=== PATIENT | male | born 1955 | race Caucasian/White ===

== ENCOUNTER 2016-09-16 10:52 | Outpatient (CLI) | payer MEDICARE ==
[~2016-09-16] VITALS: Ht 180.3 cm; Wt 90.9 kg
--- NOTE | ~2016-09-16 | HEMODYNAMI ---
PATIENT:JOSE RAMON GÓMEZ MEDICAL RECORD: [id number] : 51 LOCATION:[facility] ADMISSION DATE: 09/16/16 Generatedon:09/16/201613:31 Patient name: JOSE RAMON GÓMEZ Patient #: [id number] SSN: D OB: 1955 Date of study: 09/16/2016 Page: Of Hemodynamic Procedure Report Patient Data Patient Demographics Procedure consent was obtained First Name: JOSE RAMON Gender: Male Last Name: RICO : 1955 Patient #: [id number] Age: 61 year(s) Race: Additional ID: [id number] Contact details Address: [address] [place] [address] State: [place] City: [place] Zip code: [address] Admission Admission Data Admission Date: 09/16/2016 Admission Time: 10:52 Procedure Procedure Types Cath Procedure Diagnostic Procedure LHC LHC w/Coronaries Miscellaneous Procedures Moderate Sedation up to 15 minutes Procedure Description Procedure Date Procedure Date: 09/16/2016 Procedure Start Time: 13:16 Procedure End Time: 13:30 Procedure Staff Name Function Ole Osullivan RT Scrub Mora Ng RN Nurse Galen Valente RT Monitor Cody Stephenson MD Performing Physician Procedure Data Cath Procedure Fluoroscopy Diagnostic fluoroscopy Total fluoroscopy Time: 1.2 time: 1.2 min min Diagnostic fluoroscopy Total fluoroscopy dose: dose: 125.42 mGy 125.42 mGy Contrast Material Contrast Material Type Amount (ml) Isovue 300 65 Entry Location Entry Primary Successful Side Size Upsize Upsize Entry Closure Succes sful Closure Location (Fr) 1 (Fr) 2 (Fr) Remarks Device Remarks Femoral Right 5 Fr Exoseal artery Estimated blood loss: 10 ml Diagnostic catheters Device Type Used For End Catheter Placement Cordis 5Fr JL 4.0 Coronary Catheter (MP) Angiography Cordis 5Fr 3DRC Catheter Coronary (MP) Angiography Cordis 5Fr Pigtail LV Angiography Catheter (MP) Procedure Complications No complications Procedure Medications Medication Administration Route Dosage Oxygen NC 2 l/min Heparin Flush Bag added to field 2 bags (1000units/500ml NS) Lidocaine 2% added to field 20 Versed I.V. 1 mg Fentanyl I.V. 50 mcg Versed I.V. 1 mg Fentanyl I.V. 50 mcg Hemodynamics Rest Heart Rate: 69 (bpm) Pressure Samples Time Site Value (mmHg) Purpose Heart Use Rate(bpm) 13:22 LV 120/-10,10 Snapshot 70 Gradients Valve Time Site Site Mean SEP/DFP Peak To Heart Use 1 2 (mmHg) (sec/min) Peak Rate (mmHg) (bpm) Aortic 13:23 LV AO 72 Snapshots Pre Cath Intra NCS Post Cath Vital Signs Time Heart Resp SPO2 NIBP (mmHg) Rhythm Pain Sedation Rate (ipm) (%) Status Level (bpm) 13:02:28 72 15 100 156/98(136) NSR 0 (11) 10(A) , No pain 13:06:54 76 15 100 151/100(132) NSR 0 (11) 10(A) , No pain 13:11:12 67 18 96 135/82(120) NSR 0 (11) 10(A) , No pain 13:15:30 69 16 98 125/98(117) NSR 0 (11) 10(A) , No pain 13:19:48 68 16 99 133/82(111) NSR 0 (11) 9(A) , No pain 13:24:08 83 16 98 128/105(122) NSR 0 (11) 9(A) , No pain 13:26:36 80 16 99 149/92(122) NSR 0 (11) 10(A) , No pain Medications Time Medication Route Dose Verified Delivered Reason Notes Effec tiveness by by 13:04:28 Oxygen NC 2 Cody Mora Per l/min St. Brary Ng RN physician 13:04:39 Heparin Flush added 2 Cody Mora used for Bag to bags [facility]. Barry Ng RN procedure (1000units/500ml field PADILLA NS) 13:04:48 Lidocaine 2% added 20ml Cody Cody used for to vial [facility] [place] procedure field MD PADILLA 13:15:03 Versed I.V. 1 mg Cody Mora for [facility]. Barry Ng RN sedation 13:15:09 Fentanyl I.V. 50 Cody Mora for mcg [facility]. Barry Ng RN sedation 13:17:27 Versed I.V. 1 mg Cody [place] RN sedation 13:17:31 Fentanyl I.V. 50 Cody izquierdo [facility] [facility] Barry Ng RN sedation Procedure Log Time Note 12:30:55 Galen Arevaloley RT(R) sent for patient. Start room use. 12:47:30 ACC Patient presents with Stable Angina CCS Anginal Class 2--Slight limitation of ordinary activity. 12:47:33 Diagnostic Cath status Elective 12:48:03 Time tracking: Regular hours 12:48:08 Plan of Care:Hemodynamics will remain stable., Cardiac rhythm will remain stable., Comfort level will be maintained., Respiratory function will remain adequate., Patient/ family verbilizes understanding of procedure., Procedure tolerated without complication., Recovers from procedure without complications.. 12:48:27 Patient received from Pre/Post Procedure Room to [facility] 3 Alert and oriented. Tansferred to table in Supine position. 12:48:28 Warm blankets applied, and kayla hugger turned on for patient comfort. 12:48:29 Correct patient and procedure confirmed by team. 12:48:31 Signed procedure consent form obtained from patient. 12:48:32 ECG and BP/O2 sat monitors applied to patient. 13:01:07 Vital chart was started 13:04:28 Oxygen 2 l/min NC was given by Mora Ng RN; Per physician; 13:04:39 Heparin Flush Bag (1000units/500ml NS) 2 bags added to field was given by Mora Ng RN; used for procedure; 13:04:48 Lidocaine 2% 20ml vial added to field was given by Cody Stephneson MD; used for procedure; 13:11:22 Baseline sample Acquired. 13:11:28 Rhythm: sinus rhythm 13:12:09 Full Disclosure recording started 13:12:47 H&P Date Dictated: 09/09/2016 Within 30 days and on chart., H&P Addendum completed by physician on day of procedure. (MUST COMPLETE FOR ALL OUTPATIENTS). 13:12:48 Pre-procedure instructions explained to patient. 13:12:48 Pre-op teaching completed and patient verbalized understanding. 13:12:49 Family in waiting room. 13:12:51 Patient NPO since Midnight. 13:13:30 Is the patient allergic to Iodine/contrast media? No. 13:13:32 Is patient on blood thinner?No 13:13:34 ACC The patient was administered the following blood thiners within the last 24 hours: None 13:13:39 Patient diabetic? No. 13:13:50 Previous problem with sedation/anesthesia? No ? 13:13:52 Snore? Yes 13:13:53 Sleep apnea? No 13:13:54 Deviated septum? No 13:13:54 Opens mouth fully? Yes 13:13:55 Sticks out tongue? Yes 13:13:57 Airway obstruction? No ? 13:14:00 Dentures? No ? 13:14:03 Pre procedure: right dorsailis pedis pulse 1+ Palpable, but thready & weak; easily obliterated 13:14:06 Patient pain scale 0/10 .. 13:14:09 Lab results completed and on chart. 13:14:12 Right groin area was prepped with chlora-prep and draped in sterile fashion 13:14:13 Alarms reviewed by R. N. 13:14:14 Sharps counted by scrub and verified by R.N. 13:14:15 --------ALL STOP TIME OUT------ 13:14:15 Final Timeout: patient, procedure, and site verified with staff and physician. All members of the team are in agreement. 13:14:17 Right groin site verified by team. 13:14:39 Physical assessment completed. ASA score P 2 - A patient with mild systemic disease as per Cody Stephenson MD. 13:14:42 Sedation plan: IV Moderate Sedation Versed, Fentanyl 13:15:03 Versed 1 mg I.V. was given by Mora Ng RN; for sedation; 13:15:09 Fentanyl 50 mcg I.V. was given by Mora Ng RN; for sedation; 13:15:36 Zero performed for pressure channel P1 13:16:25 Use device set Femoral Dx 13:16:26 Tegaderm 4 x 4 opened to sterile field. 13:16:27 Acist Hand Control opened to sterile field. 13:16:27 Acist Manifold opened to sterile field. 13:16:28 Acist Syringe opened to sterile field. 13:16:29 Bag Decanter opened to sterile field. 13:16:29 Medline Cath Pack opened to sterile field. 13:16:30 Terumo 5Fr [place] Sheath opened to sterile field. 13:16:30 St Shabbir 260cm J .035 wire opened to sterile field. 13:16:31 Diagnostic Infinity 5Fr Multipack catheter opened to sterile field. 13:16:36 Procedure started. 13:16:40 Local anesthetic to right femoral artery with Lidocaine 2% by Cody Stephenson MD.INITIAL ACCESS ONLY 13:17:26 A 5 Fr sheath was inserted into the Right Femoral artery 13:17:27 Versed 1 mg I.V. was given by Mora Ng RN; for sedation; 13:17:31 Fentanyl 50 mcg I.V. was given by Mora Ng RN; for sedation; 13:17:49 A Cordis 5Fr JL 4.0 Catheter (MP) was advanced over the wire and used for Coronary Angiography. 13:18:56 LCA angiography performed. 13:20:02 Catheter removed. 13:20:29 A Cordis 5Fr 3DRC Catheter (MP) was advanced over the wire and used for Coronary Angiography. 13:20:34 RCA angiography performed. 13:20:35 Catheter removed. 13:21:04 A Cordis 5Fr Pigtail Catheter (MP) was advanced over the wire and used for LV Angiography. 13:22:28 LV angiography performed. 13:22:30 LV gram done using TOLEDO 13:22:50 EF : 50 % 13:23:15 LV hemodynamics recorded. 13:23:19 Injector settings: Ml/sec: 10, Volume: 20, 13:23:29 Catheter removed. 13:23:44 Cordis 5Fr Exoseal opened to sterile field. 13:24:25 Sheath removed intact; hemostasis achieved with Exoseal to the Right Femoral artery. 13:24:27 Procedure ended.(Physican Out) 13:24:40 Fluoroscopy time 01.20 minutes. 13:24:44 Fluoroscopy dose: 125.42 mGy 13:24:44 Flurop Dose total: 125.42 13:24:57 Contrast amount:Isovue 300 65ml. 13:24:58 Sharps counted by scrub and verified by R.N. 13:25:00 Insertion/operative site no bleeding no hematoma. 13:25:15 Post-op/insertion site Right Femoral artery dressed using a 4 x 4 and Tegaderm. 13:25:20 Post Procedure Pulses reassessed and unchanged 13:25:30 Post-procedure physical assessment completed. ASA score P 2 - A patient with mild systemic disease as per Cody Stephenson MD. 13:25:33 Post procedure rhythm: unchanged. 13:25:37 Estimated blood loss: 10 ml 13:25:38 Post procedure instruction explained to patient.Patient verbalizes understanding. 13:25:39 Patient needs reinforcement of post procedure teaching. 13:25:48 Procedure type changed to Cath procedure, Diagnostic procedure, LHC, LHC w/Coronaries, Miscellaneous Procedures, Moderate Sedation up to 15 minutes 13:25:53 Procedure and supply charges have been captured, reviewed, submitted and are correct. 13:25:56 Procedure Complication : No complications 13:30:21 Vital chart was stopped 13:30:21 See physician's report for complete and final results. 13:30:23 Report given to Pre/Post Procedure Room. 13:30:25 Patient transfered to Pre/Post Procedure Room with Stretcher. 13:30:27 Procedure ended. 13:30:27 Full Disclosure recording stopped 13:30:31 End room use (Document Last) Device Usage Item Name Manufacture Quantity Catalog Hospital Part Current Minimal Lo t# / Number Charge Number Stock Stock Serial# Code Tegaderm 4 3M 1 [id number] 5 x 4 Acist Hand Acist 1 47427 876738 305163 221681 5 Control [employer] Acist Acist 1 46106 856934 928678 874650 5 Manifold [employer] Acist Acist 1 25950 560257 218840 697540 20 Syringe [employer] Inc Bag Microtek 1 2002S 856480 18642 822187 5 [employer] Medline Cardinal 1 [id number] 467099 56104 551643 5 Cath Pack Health Terumo 5Fr Terumo 1 [id number] 320664 573139 416239 [address] Shabbir 1 895516 295351 183421 929766 30 260cm J .035 wire Diagnostic Cardinal 1 [id number] 993985 99993 756203 30 [employer] 5Fr Multipack catheter Cordis 5Fr Cardinal 1 [id number] 5 JL 4.0 Health Catheter (MP) Cordis 5Fr Cardinal 1 477475 5 3DRC Health Catheter (MP) Cordis 5Fr Cardinal 1 264509 5 Pigtail Health Catheter (MP) Cordis 5Fr Cardinal 1 EX500 644899 941276 936374 10 [facility] Health Signature Audit [place] Stage Time Signature Unsigned Intra-Procedure 09/16/2016 Galen Valente 1:31:08 PM RT(R) Signatures Monitor : Galen Valente RT Signature : Date : Time : [address] [address]
[~2016-09-16 10:52] MED LIST: CARDURA1 MG PO; MOBIC7.5 MG PO; PRILOSEC10 MG
[2016-09-16] MEDS ORDERED: BAYER CHEWABLE81 MG PO (11:24)
[2016-09-16 11:26] VITALS: BP 145/83; Ht 180.3 cm; Wt 90.9 kg
[2016-09-16 11:50] LABS: BASOPHILS 0.3 % (0.0-2.0); EOSINOPHILS 2.7 % (0-7); HEMATOCRIT 43.4 % (42.0-54.0); HEMOGLOBIN 14.9 g/dL (13.5-17.5); IMMATURE GRANULOCYTES 0.3 % (0-5); LYMPHOCYTES 39.5 % (15-50); MCH 29.8 pg (26.0-34.0); MCHC 34.3 g/dL (31.0-37.0); MCV 86.8 fL (80.0-100.0); MEAN PLATELET VOLUME 9.8 fL (7.4-10.4); MONOCYTES 8.3 % (2-11); NEUTROPHILS 48.9 % (40-80); PLATELET COUNT 165 10x3/uL (130-400); RDW 12.8 % (11.5-14.5); WBC 5.9 10x3/uL (4.8-10.8)
[2016-09-16 12:09] LABS: CALC OSMOLALITY 281 mosm/kg (275-300); CALCIUM 9.2 mg/dL (8.5-10.1); CARBON DIOXIDE 28.5 mmol/L (21.0-32.0); CHLORIDE - SERUM 105 mmol/L (98-107); CREATININE - SERUM 0.8 mg/dL (0.6-1.3); GLUCOSE 90 mg/dL (74-106); POTASSIUM - SERUM 5.5 mmol/L (3.5-5.1); SODIUM 141 mmol/L (136-145); UREA NITROGEN 15 mg/dL (7-18); eGFR NON AFRICAN AMERICAN > 90 mL/min (90-120)
--- NOTE | 2016-09-16 13:54 | NUR ---
VSS WITH CHEST PAIN DENIED 5 FR VASCADE R/GROIN CDI NO BLEEDING NO HEMATOMA NOTED. INSTRUCTED PATIENT TO KEEP HEAD FLAT ON PILLOW WITH RLE STRAIGHT
--- NOTE | 2016-09-16 14:07 | NUR ---
DR. SANCHEZ AT BEDSIDE SPEAKING WITH PT AND . SANDWICH TRAY GIVEN. VSS. NO C/O PAIN OR NAUSEA AT THIS TIME. WILL CONTINUE TO MONITOR.
--- NOTE | 2016-09-16 14:26 | NUR ---
VSS WITH CHEST PAIN DENIED. 5 FR EXOSEAL R/GROIN CDI NO BLEEDING NO HEMATOMA NOTED INSTRUCTED PATIENT TO KEEP HEAD FLAT ON PILLOW WITH RLE STRAIGHT
--- NOTE | 2016-09-16 14:58 | NUR ---
RESTING QUIETLY WITH EYES CLOSED VSS NO DISTRESS NOTED. WILL CONTINUE TO MONITOR
--- NOTE | 2016-09-16 15:11 | NUR ---
REPOSITIONED TO SITTING WITH HOB UP 30 DEGREES 5 FR EXOSEAL R/GROIN CDI NO BLEEDING NO HEMATOMA NOTED.
--- NOTE | 2016-09-16 15:34 | NUR ---
PIV REMOVED FROM LEFT ARM WITH DRESSING APPLIED. CHEST PAIN DENIED 5 FR EXOSEAL R/GROIN CDI NO BLEEDING NO HEMATOMA NOTED VERBAL AND WRITTEN DISCHARGE GONE OVER WITHPATIENT AND . 1545 LEFT VIA WC TO [facility] FOR FAMILY TO TRANSPORT HOME
--- NOTE | 2016-09-18 12:18 | OP ---
PATIENT NAME: JOSE RAMON GÓMEZ MEDICAL RECORD: [id number] :51 LOCATION:D.CAT ADMISSION DATE: SURGEON: NEIDA AGUILAR MD DATE OF OPERATION: 09/16/2016 PROCEDURE: Left heart catheterization, selective coronary angiography, right femoral artery approach. CATHETERS: A 5-Yoruba sheath, 5/4 left and right Alla, 5/4 pig. The procedure was well-tolerated and the patient returned to medellin, sheath was removed. ExoSeal device was placed. FINDINGS: Left ventriculography in 30-degree TOLEDO view: Normal wall motion. Normal systolic function. CORONARY ANATOMY: LEFT MAIN: The left main is free of disease. LAD: Free of disease in the diagonal system. CIRCUMFLEX: Free of disease in the marginal system. RIGHT CORONARY ARTERY: Previous stenting is widely patent with no evidence of restenosis. 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 No restenosis. TRANSINT:[id number] Voice Confirmation ID: [id number] DOCUMENT ID: [id number] NEIDA AGUILAR MD at 1218 CC: [id number] DICTATION DATE: 09/16/16 1328 LARYNGOLOGIST: 09/16/16 2230 DEP CLI 09/16/16 [address] [id number] [place] [address]
== END 2016-09-16 15:46 | disposition home or self-care (01) ==
LOC: D.CATH 10:52
PROVIDERS: Internal Medicine Interventional Cardiology
DX: I25.10 Atherosclerotic heart disease of native coronary artery without angina pectoris (principal); Z95.5 Presence of coronary angioplasty implant and graft

== ENCOUNTER 2018-06-30 18:26 | Emergency (ER) | payer MEDICARE, BC ==
[~2018-06-30] VITALS: Ht 180.3 cm; Wt 93.2 kg
[~2018-06-30 18:26] MED LIST changes: +BAYER CHEWABLE81 MG PO
[2018-06-30 18:47] VITALS: Ht 180.3 cm; Wt 93.2 kg
[2018-06-30] MEDS ORDERED: PREVACID15 MG PO (18:48)
[2018-06-30] MEDS ORDERED: GABAPENTIN100 MG PO (18:49)
[2018-06-30 19:53] VITALS: BP 144/88
== END 2018-06-30 19:53 | disposition home or self-care (01) ==
LOC: D.ER 18:26
DX: S05.01XA Injury of conjunctiva and corneal abrasion without foreign body, right eye, initial encounter (principal); X58.XXXA Exposure to other specified factors, initial encounter; Y93.89 Activity, other specified; Y92.019 Unspecified place in single-family (private) house as the place of occurrence of the external cause; I10 Essential (primary) hypertension

== ENCOUNTER 2018-08-20 14:09 | Observation (INO) | payer MEDICARE, BC ==
[2018-08-20] VITALS (8 sets, daily range): BP systolic 98–141; BP diastolic 57–78; Ht 180.3 cm; Wt 90.9 kg
[~2018-08-20] VITALS: Ht 180.3 cm; Wt 90.9 kg
--- NOTE | ~2018-08-20 | HEMODYNAMI ---
PATIENT:JOSE RAMON GÓMEZ MEDICAL RECORD: [id number] : 51 [id number] ADMISSION DATE: 08/20/18 Generatedon:08/21/201810:05 Patient name: JOSE RAMON GÓMEZ Patient #: [id number] SSN: D OB: 1955 Date of study: 08/21/2018 Page: Of Hemodynamic Procedure Report Patient Data Patient Demographics Procedure consent was obtained First Name: JOSE RAMON Gender: Male Last Name: RICO : 1955 Patient #: [id number] Age: 63 year(s) Race: Additional ID: [id number] Contact details [address]: [address] [place] [address] State: [place] City: [place] Zip code: [address] Past Medical History Allergies: No known allergies Admission Admission Data Admission Date: 08/20/2018 Admission Time: 17:50 Admit Source: Other Room #: D.2119 Procedure Procedure Types Cath Procedure Diagnostic Procedure LHC LH w/Coronaries Sedation Charges Moderate Sedation up to 15 minutes PCI Procedure Coronary Stent Coronary Stent Initial Coronary Stent Additional PTCA PTCA Initial Procedure Description Procedure Date Procedure Date: 08/21/2018 Procedure Start Time: 9:43 Procedure End Time: 10:03 Procedure Staff Name Function Willie Aponte MD Performing Physician Clare Ibrahim RT Monitor Tay Varghese RT Scrub Tin Kearns RN Nurse Galen Valente RT Publishing Specialist Procedure Data Cath Procedure Fluoroscopy Diagnostic fluoroscopy Total fluoroscopy Time: 4.9 time: 4.9 min min Diagnostic fluoroscopy Total fluoroscopy dose: dose: 1054 mGy 1054 mGy Contrast Material Contrast Material Type Amount (ml) Isovue 300 138 Entry Location Entry Primary Successful Side Size Upsize Upsize Entry Closure Wheeler ccessful Closure Location (Fr) 1 (Fr) 2 (Fr) Remarks Device Remarks Radial Right 6 Fr Mechanical artery Short Compression Estimated blood loss: 10 ml Diagnostic catheters Device Type Used For End Catheter Placement DIAGNOSTIC Gary 110cm 5 Procedure Fr catheter ([id number]) DIAGNOSTIC AR2 MOD 5 Fr Procedure catheter ([id number]) Procedure Complications No complications Procedure Medications Medication Administration Route Dosage 0.9% NaCl I.V. 100 ml/hr Oxygen etCO2 Nasal cannula 2 l/min Lidocaine 2% added to field 20 Heparin Flush Bag added to field 2 bags (1000units/500ml NS) Radial Cocktail added to field 1 syringe (Verapomil 2mg/Nitro 400mcg/Heparin 1500units) Versed I.V. 2 mg Fentanyl I.V. 100 mcg Versed I.V. 1 mg Fentanyl I.V. 50 mcg Heparin Bolus I.V. 4000 units Nitroglycerin IC/IA I.C. 200 mcg Versed I.V. 1 mg Plavix P.O. 75 mg Hemodynamics Rest Heart Rate: 75 (bpm) Snapshots Pre Cath Intra NCS Post Cath Vital Signs Time Heart Resp SPO2 etCO2 NIBP (mmHg) Rhythm Pain Sedation Rate (ipm) (%) (mmHg) Status Level (bpm) 9:27:54 76 26 98 0 165/88(133) NSR 0 (11) 10(A) , No pain 9:32:15 78 12 97 34.3 162/91(134) NSR 0 (11) 10(A) , No pain 9:36:35 73 12 98 30.7 152/90(136) NSR 0 (11) 10(A) , No pain 9:40:55 71 15 96 18.6 146/85(126) NSR 0 (11) 10(A) , No pain 9:45:11 91 13 93 28.3 113/78(91) NSR 0 (11) 9(A) , No pain 9:49:15 81 15 94 119/81(95) NSR 0 (11) 9(A) , No pain 9:53:22 83 16 92 130/74(108) NSR 0 (11) 9(A) , No pain 9:57:33 88 15 94 115/72(100) NSR 0 (11) 9(A) , No pain 10:01:42 80 15 96 120/77(98) NSR 0 (11) 10(A) , No pain Medications Time Medication Route Dose Verified Delivered Reason Not es Effectiveness by by 9:41:22 0.9% NaCl I.V. 100 Willie Castle used for ml/hr Fadi Kearns RN procedure 9:41:29 Versed I.V. 2 mg Willie Castle for sedation Fadi Kearns RN 9:41:29 Oxygen etCO2 2 l/min Willie Castle used for Nasal Fadi Kearns RN procedure cannula 9:41:34 Lidocaine 2% added 20ml Willie Tapia for local to vial Fadi Aponte MD anesthetic field 9:41:36 Fentanyl I.V. 100 mcg Willie Castle for sedation Fadi Kearns RN 9:41:39 Heparin Flush added 2 bags Willie Tapia used for Bag to Fadi Aponte MD procedure (1000units/500ml field NS) 9:44:39 Radial Cocktail added 1 Willie Tapia used for (Verapomil to syringe Fadi Aponte MD procedure 2mg/Nitro field 400mcg/Heparin 1500units) 9:45:06 Versed I.V. 1 mg Willie Castle for sedation Fadi Kearns RN 9:45:10 Fentanyl I.V. 50 mcg Willie Castle for sedation Fadi Kearns RN 9:48:36 Heparin Bolus I.V. 4000 Willie Castle for jann ified units Fadi Kearns RN anticoagulation with dr aponte 9:56:37 Nitroglycerin I.C. 200 mcg Willie Tapia for IC/IA Fadi Aponte MD vasodilation 9:57:04 Versed I.V. 1 mg Willie Castle for sedation Fadi Kearns RN 10:00:08 Plavix P.O. 75 mg Willie Castle for Fadi Kearns RN antiplatelet therapy Procedure Log Time Note 9:12:39 Informed consent obtained and on chart 9:12:42 Admit Source: Other 9:12:56 Diagnostic Cath status Elective 9:12:58 Galen Valente RT(R) sent for patient. Start room use. 9:12:59 Time tracking: Regular hours (M-F 7:00 - 5:00) 9:13:02 Plan of Care:Hemodynamics will remain stable., Cardiac rhythm will remain stable., Comfort level will be maintained., Respiratory function will remain adequate., Patient/ family verbilizes understanding of procedure., Procedure tolerated without complication., Recovers from procedure without complications.. 9:26:42 Vital chart was started 9:27:43 Patient received from Med II to CCL 2 Alert and oriented. Tansferred to table in Supine position. 9:27:44 Warm blankets applied, and kayla hugger turned on for patient comfort. 9:27:44 Correct patient and procedure confirmed by team. 9:27:45 Baseline sample Acquired. 9:27:48 Rhythm: sinus rhythm 9:27:49 Full Disclosure recording started 9:27:50 Pre-procedure instructions explained to patient. 9:27:50 Pre-op teaching completed and patient verbalized understanding. 9:27:52 Family in patients room. 9:27:53 Patient NPO since Midnight. 9:33:42 Patient allergic to No known allergies 9:33:44 Is patient on blood thinner?Yes 9:33:56 ACC The patient was administered the following blood thiners within the last 24 hours: ACCPlavix 9:34:02 PRE LOADED PLAVIX 9:34:05 Patient diabetic? No. 9:34:07 Previous problem with sedation/anesthesia? No ? 9:34:08 Snore? Yes 9:34:09 Sleep apnea? No 9:34:10 Deviated septum? No 9:34:11 Opens mouth fully? Yes 9:34:12 Sticks out tongue? Yes 9:34:14 Airway obstruction? No ? 9:34:16 Dentures? No ? 9:34:18 Modified Vinny's test Ulnar < 7 seconds 9:34:21 Patient pain scale 0/10 ?. 9:34:26 IV patent on arrival in right hand with 0.9% NaCl at [facility]. 9:34:32 Right Radial & Right Groin area was prepped with chlora-prep and draped in sterile fashion 9:34:32 Alarms reviewed by R. N. 9:34:33 Sharps counted by scrub and verified by R.N. 9:34:36 Use device set Radial Dx or PCI 9:34:37 ACIST Syringe (19122) opened to sterile field. 9:34:38 Bag Decanter (2001S) opened to sterile field. 9:34:39 ACIST Hand Control (42402) opened to sterile field. 9:34:39 ACIST Manifold (27609) opened to sterile field. 9:34:40 Tegaderm 4 x 4 (1626W) opened to sterile field. 9:34:42 Medline Cath Pack ([id number]) opened to sterile field. 9:34:43 DIAGNOSTIC WIRE .035 260cm J wire (544151) opened to sterile field. 9:34:43 MBrace Wrist Support ([id number]) opened to sterile field. 9:34:44 SHEATH 6FR Slender (99-2894) opened to sterile field. 9:40:21 Final Timeout: patient, procedure, and site verified with staff and physician. All members of the team are in agreement. 9:40:24 Right Radial & Right Groin site verified by team. 9:40:28 Fire Safety Assessment: A--An alcohol-based skin anteseptic being used preoperatively., C--Open oxygen or nitrous oxide is being used., D--An ESU, laser, or fiber-optic light is being used. 9:40:30 Physical assessment completed. ASA score P 2 - A patient with mild systemic disease as per Willie Aponte MD. 9:40:32 Sedation plan: IV Moderate Sedation Medication:Versed, Fentanyl 9:40:36 Zero performed for pressure channel P1 9:41:22 0.9% NaCl 100 ml/hr I.V. was administered by Tin Kearns RN; used for procedure; 9:41:29 Versed 2 mg I.V. was administered by Tin Kearns RN; for sedation; :41:29 Oxygen 2 l/min etCO2 Nasal cannula was administered by Tin Kearns RN; used for procedure; 9:41:34 Lidocaine 2% 20ml vial added to field was administered by Willie Aponte MD; for local anesthetic; :41:36 Fentanyl 100 mcg I.V. was administered by Tin Kearns RN; for sedation; 9:41:39 Heparin Flush Bag (1000units/500ml NS) 2 bags added to field was administered by Willie Aponte MD; used for procedure; 9:43:17 Procedure started. 9:43:23 Local anesthetic to right radial artery with Lidocaine 2% by Willie Aponte MD.INITIAL ACCESS ONLY 9:43:30 A 6 Fr Short sheath was inserted into the Right Radial artery 9:44:15 A DIAGNOSTIC Gary 110cm 5 Fr catheter (398453) was advanced over the wire and used for Procedure. 9:44:32 LV gram done using TOLEDO 9:44:39 Radial Cocktail (Verapomil 2mg/Nitro 400mcg/Heparin 1500units) 1 syringe added to field was administered by Willie Aponte MD; used for procedure; Injector settings: Ml/sec: 7, Volume: 15, :: EF : 60 % 9:45:06 Versed 1 mg I.V. was administered by Tin Kearns RN; for sedation; :45:10 Fentanyl 50 mcg I.V. was administered by Tin Kearns RN; for sedation; 9:45:49 LCA angiography performed. 9:46:27 Catheter exchanged over wire. 9:47:00 A DIAGNOSTIC AR2 MOD 5 Fr catheter ([id number]) was advanced over the wire and used for Procedure. 9:47:31 CHOICE PT Extra Support 182cm wire ([id number]) opened to sterile field. 9:47:31 INFLATOR Merit BasixCompak (SW2748) opened to sterile field. 9:48:10 RCA angiography performed. 9:48:14 Catheter exchanged over wire. 9:48:27 GUIDE 6FR XBLAD 3.5 catheter ([id number]) opened to sterile field. 9:48:36 Heparin Bolus 4000 units I.V. was administered by Tin Kearns RN; for anticoagulation; verified with dr aponte 9:48:54 Zero performed for pressure channel P1 9:49:29 6 Fr XBLAD 3.5 guide catheter was inserted over the wire 9:51:03 CHOICE ES 182 wire advanced. 9:51:46 WIRE ADVANCED ACROSS LAD 9:52:36 Place stent Inflation Number: 1 A MALCOLM RX 2.25 x 18 stent ([id number]) was prepped and advanced across the Mid LAD. The stent was deployed at 15 EDMUND for 0:00 (min:sec). 9:52:57 Wire redirected to DIAG. 9:53:24 Stent catheter was removed intact over wire. 9:54:41 Inflate balloon Inflation number: 1 A EUPHORA 2.0 x 15 Balloon ([id number]) was prepped and advanced across the 1st Diag, then inflated to 17 EDMUND for 0:10 (min:sec). 9:55:07 Balloon removed over the wire. 9:56:37 Nitroglycerin IC/IA 200 mcg I.C. was administered by Willie Aponte MD; for vasodilation; 9:57:04 Versed 1 mg I.V. was administered by Tin Kearns RN; for sedation; 9:57:31 Wire redirected to CIRC. 9:58:46 Place stent Inflation Number: 1 A MALCOLM RX 2.5 x 12 stent ([id number]) was prepped and advanced across the 1st Ob Cori. The stent was deployed at 11 EDMUND for 0:10 (min:sec). 9:58:50 Stent catheter was removed intact over wire. 9:58:51 Wire removed. 9:58:51 Guide catheter removed. 9:59:11 Procedure ended.(Physican Out) 10:00:08 Plavix 75 mg P.O. was administered by Tin Kearns RN; for antiplatelet therapy; 10:00:17 TR BAND Standard ([id number]) opened to sterile field. 10:00:25 Sheath removed intact; hemostasis achieved with Mechanical Compression to the Right Radial artery. 10:00:29 Fluoroscopy time 04.90 minutes. 10:00:32 Fluoroscopy dose: 1054 mGy 10:00:32 Flurop Dose total: 1054 10:00:38 Contrast amount:Isovue 300 138ml. 10:00:39 Sharps counted by scrub and verified by R.N. 10:00:46 TR band inflated with 10cc of air. 10:00:49 Post-procedure physical assessment completed. ASA score P 2 - A patient with mild systemic disease as per Willie Aponte MD. 10:00:52 Post procedure rhythm: sinus rhythm 10:00:54 Estimated blood loss: 10 ml 10:00:55 Post procedure instruction explained to patient.Patient verbalizes understanding. 10:00:55 Patient needs reinforcement of post procedure teaching. 10:01:52 Procedure type changed to Cath procedure, Diagnostic procedure, LHC, LHC w/Coronaries, Sedation Charges, Moderate Sedation up to 15 minutes, PCI procedure, Coronary Stent, Coronary Stent Initial, Coronary Stent Additional, PTCA, PTCA Initial 10:03:05 Procedure and supply charges have been captured, reviewed, submitted and are correct. 10:03:07 Procedure Complication : No complications 10:03:09 Vital chart was stopped 10:03:09 See physician's report for complete and final results. 10:03:12 Report given to PCU. 10:03:14 Patient transfered to PCU with Bed. 10:03:16 Procedure ended. 10:03:16 Full Disclosure recording stopped 10:03:23 End room use (Document Last) Intervention Summary Intervention Notes Time ActionType Lesion and Equipment Used Action# Pressure Duration Attributes 9:52:36 Place stent Mid LAD MALCOLM RX 2.25 x 1 15 00:00 18 stent ([id number]) 9:54:41 Inflate 1st Diag EUPHORA 2.0 x 1 17 00:10 balloon 15 Balloon ([id number]) 9:58:46 Place stent 1st Ob Cori MALCOLM RX 2.5 x 1 11 00:10 12 stent ([id number]) Device Usage Item Name Manufacture Quantity Catalog Number Hospital Part Current M inimal Lot# / Charge Number Stock Stock Serial# Code ACIST Syringe Acist 1 55364 467714 096331 860893 2 0 (70924) Medical Systems Inc Bag Decanter Microtek 1 2001S 708248 12856 904837 5 (2001S) Medical Inc. ACIST Hand Acist 1 13028 333847 775829 460143 5 Control Medical (68520) Systems Inc ACIST Manifold Acist 1 58488 442392 863379 302305 5 (75418) Medical Systems Inc Tegaderm 4 x 4 3M 1 1626W 498268 659934 345784 5 (1626W) Medline Cath Medline 1 [id number] 673701 71518 946185 5 Pack ([id number]) DIAGNOSTIC St Shabbir 1 610058 115324 847668 352974 3 0 WIRE .035 260cm J wire (827689) MBrace Wrist Advanced 1 140-0250-00 666123 77404 263188 5 Support Vascular ([id number]) Dynamics SHEATH 6FR Terumo 1 [id number] 918040 746376 590365 5 Slender (80-1060) DIAGNOSTIC Terumo 1 40-7552 610578 798213 140396 5 Gary 110cm 5 Fr catheter (660967) DIAGNOSTIC AR2 Cardinal 1 [id number] 016971 596094 514248 2 0 MOD 5 Fr Health catheter (414895M) CHOICE PT Banner 1 [id number] 601201 553977 573048 5 Extra Support Scientific 182cm wire ([id number]) INFLATOR Merit Merit 1 NM5406 144737 551398 043823 1 5 AucteliaMountainStar HealthcareExtended Systems Medical (LG1976) GUIDE 6FR Cardinal 1 86968933 980527 850564 428850 1 0 XBLAD 3.5 Health catheter (58002774) MALCOLM RX 2.25 x Medtronic 1 [id number] 635608 0665738 866154 5 [id number] 18 stent ([id number]) EUPHORA 2.0 x Medtronic 1 [id number] 151915 280806 917036 5 [id number] 15 Balloon ([id number]) MALCOLM RX 2.5 x Medtronic 1 [id number] 815501 2317599 158092 5 [id number] 12 stent ([id number]) TR BAND Terumo 1 [id number] 078927 403393 215208 4 0 Standard ([id number]) Signature Audit [place] Stage Time Signature Unsigned Intra-Procedure 08/21/2018 Clare Ibrahim 10:05:03 AM RT(R) Signatures Monitor : Clare Ibrahim Signature : RT Date : Time : [id number] [place] [address]
[~2018-08-20 14:09] MED LIST changes: +GABAPENTIN100 MG PO; +OMEPRAZOLE20 M1 PO; +PREVACID15 MG PO; -PRILOSEC10 MG
--- NOTE | 2018-08-20 14:51 | NUR ---
PT RATES CP 3/10 PRIOR TO FIRST SL NITRO TABLET.
[2018-08-20 15:39] LABS: APTT 30.3 SECONDS (22.8-39.4); INR 1.06 (0.85-1.17); PROTIME 13.3 SECONDS (11.6-15.0)
[2018-08-20 15:41] LABS: HEMATOCRIT 39.6 % (42.0-54.0); HEMOGLOBIN 13.9 g/dL (13.5-17.5); LYMPHOCYTES 11.9 % (15-50); MCH 29.7 pg (26.0-34.0); MCHC 35.1 g/dL (31.0-37.0); MCV 84.6 fL (80.0-100.0); MEAN PLATELET VOLUME 8.7 fL (7.4-10.4); NEUTROPHILS 80.7 % (40-80); PLATELET COUNT 145 10x3/uL (130-400); RBC 4.68 10x6/uL (4.20-6.10); RDW 12.1 % (11.5-14.5); WBC 5.5 10x3/uL (4.8-10.8)
[2018-08-20 15:45] LABS: ALBUMIN 3.8 g/dL (3.4-5.0); ALKALINE PHOSPHATASE 80 U/L (46-116); ALT (SGPT) 56 U/L (10-68); CALC OSMOLALITY 280 mosm/kg (275-300); CALCIUM 8.7 mg/dL (8.5-10.1); CARBON DIOXIDE 23.5 mmol/L (21.0-32.0); CHLORIDE - SERUM 103 mmol/L (98-107); GLUCOSE 123 mg/dL (74-106); POTASSIUM - SERUM 3.8 mmol/L (3.5-5.1); PROTEIN - SERUM 7.2 g/dL (6.4-8.2); SODIUM 139 mmol/L (136-145); UREA NITROGEN 17 mg/dL (7-18); eGFR NON AFRICAN AMERICAN 80 mL/min (90-120)
[2018-08-20 15:49] LABS: CKMB 0.9 U/L (0.0-3.6); CREATINE KINASE 101 UL (21-232); MAGNESIUM - SERUM 1.8 mg/dL (1.8-2.4)
[2018-08-20 15:51] LABS: TROPONIN-I < 0.017 ng/mL (0.000-0.060)
--- NOTE | 2018-08-20 15:57 | NUR ---
PT STATES THAT FOLLOWING NITRO TABLET, CP 0/10. PT STATES PAIN LEVEL REMAINS 0/10. PT REMAINS ALERT AND ORIENTED. RESPIRATIONS EVEN AND UNLABORED. VS STABLE. CALL LIGHT IN REACH.
--- NOTE | 2018-08-20 18:15 | NUR ---
ROOM 2119 ASSIGNED TO PT AT 1733 AND MARKED DIRTY, NURSE ATTEMPTED TO CALL REPORT AT 1813, RECEIVING NURSE UNABLE TO TAKE REPORT AT THIS TIME. WILL ATTEMPT TO CALL REPORT AGAIN SHORTLY. PT GIVEN [facility] D[facility]NER TRAY. PT DFENIES ANY NEEDS AT THIS TIME.
--- NOTE | 2018-08-20 19:01 | NUR ---
HAND-OFF REPORT GIVEN TO STARLA PORRAS.
--- NOTE | 2018-08-20 20:12 | NUR ---
ATTEMPTED TO CALL REPORT, NURSE UNAVAILABLE AT THIS TIME.
--- NOTE | 2018-08-20 20:28 | NUR ---
REPORT RECEIVED FROM CHIQUITA CHA
--- NOTE | 2018-08-20 20:41 | NUR ---
ARRIVED TO FLOOR VIA WHEELCHAIR, ACCOMPANIED BY HOSPITAL STAFF. ORIENTED TO UNIT AND PLACED ON TELEMETRY. CALL LIGHT IN REACH. SEE NURSE ASSESSMENT.
[2018-08-20] MEDS ORDERED: TYLENOL PM1 TAB PO (22:35)
[2018-08-21] VITALS: BP 138/72
[2018-08-21 04:00] VITALS: BP 149/71
--- NOTE | 2018-08-21 05:20 | NUR ---
NO CHANGES FROM PREVIOUS ASSESSMENT, REMAINS NPO. CALL LIGHT IN REACH. CONSENTS OBTAINED.
[2018-08-21 05:38] LABS: BASOPHILS 0.2 % (0-2); EOSINOPHILS 0.2 % (0-7); HEMATOCRIT 38.2 % (42.0-54.0); HEMOGLOBIN 13.1 g/dL (13.5-17.5); IMMATURE GRANULOCYTES 0.2 % (0-5); LYMPHOCYTES 36.1 % (15-50); MCH 29.6 pg (26.0-34.0); MCHC 34.3 g/dL (31.0-37.0); MCV 86.2 fL (80.0-100.0); MEAN PLATELET VOLUME 9.2 fL (7.4-10.4); MONOCYTES 13.7 % (2-11); NEUTROPHILS 49.6 % (40-80); PLATELET COUNT 119 10x3/uL (130-400); RBC 4.43 10x6/uL (4.20-6.10); RDW 12.7 % (11.5-14.5); WBC 4.5 10x3/uL (4.8-10.8)
[2018-08-21 05:56] LABS: ALBUMIN 3.3 g/dL (3.4-5.0); ALKALINE PHOSPHATASE 77 U/L (46-116); ALT (SGPT) 61 U/L (10-68); BILIRUBIN - TOTAL 0.54 mg/dL (0.2-1.3); CALC OSMOLALITY 283 mosm/kg (275-300); CALCIUM 8.5 mg/dL (8.5-10.1); CARBON DIOXIDE 27.6 mmol/L (21.0-32.0); CHLORIDE - SERUM 107 mmol/L (98-107); GLUCOSE 100 mg/dL (74-106); POTASSIUM - SERUM 4.3 mmol/L (3.5-5.1); PROTEIN - SERUM 6.6 g/dL (6.4-8.2); SODIUM 142 mmol/L (136-145); UREA NITROGEN 15 mg/dL (7-18); eGFR NON AFRICAN AMERICAN 80 mL/min (90-120)
--- NOTE | 2018-08-21 07:30 | NUR ---
RECEIVED PT IN BED AAOX4 RESP UNLABORED SKIN W/D COLOR WNL NAD NOTED DENIES ANY PAIN OR DISCOMFORT AT THIS TIME
[2018-08-21 08:00] VITALS: BP 146/79
--- NOTE | 2018-08-21 09:00 | NUR ---
TO SALES PROMOTION OFFICER VIA BED WITH SALES PROMOTION OFFICER STAFF
--- NOTE | 2018-08-21 10:15 | NUR ---
RECEIVED PT BACK TO ROOM VIA BED VSS PPPX4 DRSG C/D/I TO RT WRIST WITH TR BAND INTACT WITH SPLINT
[2018-08-21 11:57] VITALS: BP 106/72
[2018-08-21] MEDS ORDERED: PLAVIX75 MG PO (13:33)
--- NOTE | 2018-08-21 14:15 | NUR ---
REVIEWED DISCHARGE INSTRUCTIONS WITH PT STATES UNDERSTANDING COPY GIVEN DCD SALINE LOCK TO RT HAND WITH IV CATHETER INTACT SITE FREE OF REDNESS OR EDEMA PT DISCHARGED HOME IN STABLE CONDITION WITH ALL PERSONAL BELONGINGS LEFT UNIT VIA W/C
--- NOTE | 2018-08-24 08:44 | MORECARE ---
CASE MANAGEMENT DISCHARGE SUMMARY PATIENT: JOSE RAMON GÓMEZ UNIT: [id number] ADM DATE: 08/20/18 AGE: 63 : 53 SEX: M ROOM/BED: D.2119 AUTHOR: KYLE US PHYSICIAN: REFERRING PHYSICIAN: ANNIE ABEL MD DATE OF SERVICE: 08/24/18 Discharge Plan Patient Name: JOSE RAMON GÓMEZ [facility] [facility] 1955 Planned Disposition: Home Anticipated Discharge Date: 08/21/18 Discharge Date: 08/21/2018 Expected LOS: 1 Initial Reviewer: [email or web address] Initial Review Date: 08/24/2018 Generated: 08/24/18 9:44 am Patient Name: JOSE RAMON GÓMEZ Page [id number] at 0844 All edits/amendments must be made on the electronic document DICTATION DATE: 08/24/18842 SENIOR MARKETING ENGINEER: SIDNEY 08/24/1843 RPT#: [id number] DC DATE:08/21/18 STATUS: DIS IN [facility] [address] [place] [address] END OF REPORT
--- NOTE | 2018-08-24 08:51 | MORECARE ---
CASE MANAGEMENT DISCHARGE SUMMARY PATIENT: JOSE RAMON GÓMEZ UNIT: [id number] ADM DATE: 08/20/18 AGE: 63 : 53 SEX: M ROOM/BED: D.2119 AUTHOR: KYLE US PHYSICIAN: REFERRING PHYSICIAN: ANNIE ABEL MD DATE OF SERVICE: 08/24/18 Discharge Plan Patient Name: JOSE RAMON GÓMEZ Facility: [facility] : 1955 Planned Disposition: Home Anticipated Discharge Date: 08/21/18 Discharge Date: 08/21/2018 Expected LOS: 1 Initial Reviewer: [email or web address] Initial Review Date: 08/24/2018 Generated: 08/24/18 9:51 am Last DP export: 08/24/18 7:44 a Patient Name: JOSE RAMON GÓMEZ Page 12322 at 0851 All edits/amendments must be made on the electronic document DICTATION DATE: 08/24/18 0850 CUSTOMER SALES REPRESENTATIVE: SIDNEY 08/24/18 0850 RPT#: [id number] DC DATE:08/21/18 STATUS: DIS IN [facility] [address] [place] [address] END OF REPORT
--- NOTE | 2018-08-24 11:46 | OP ---
PATIENT NAME: JOSE RAMON GÓMEZ MEDICAL RECORD: [id number] :51 LOCATION:D.M2 D.2119 ADMISSION DATE:08/20/18 SURGEON: ANNIE ABEL MD DATE OF OPERATION: 08/21/2018 PROCEDURES: 1. PTCA stent LAD. 2. PTCA stent left circumflex. 3. PTCA LAD diagonal. 4. Left heart catheterization. 5. Selective coronary angiography. 6. Left ventriculogram. INDICATION: Unstable angina and coronary artery disease. PROCEDURE IN DETAIL: After informed consent was obtained and after detailed description of risks, benefits as well as alternative therapies, the patient elected to proceed with angiogram and angioplasty. The right femoral area was prepped and draped in normal sterile fashion. Right femoral artery was cannulated via modified Seldinger technique with placement of 6-Welsh sheath. All catheters exchanged through this sheath. FINDINGS: The left ventriculogram was performed in standard 30-degree TOLEDO view, reveals good cardiac wall motion throughout all segments. Overall ejection fraction estimated 60%. SELECTIVE CORONARY ANGIOGRAPHY: 1. Left main has no significant angiographic disease. 2. Left anterior descending has 90% stenosis in the mid vessel. 3. Left circumflex has 75% stenosis of the first obtuse marginal. 4. Right coronary has mild irregularities, but no flow-limiting stenosis. PTCA STENT OF THE LAD: The stent used was a 2.25 x 18 mm [place]. Result was 0% residual stenosis. There was plaque shift into the diagonal. The diagonal was ballooned with a 2.0 balloon. PTCA STENT OF THE LEFT CIRCUMFLEX: First obtuse marginal, the stent used was a 2.5 x 12 mm Curt. Result was 0% residual stenosis. OVERALL IMPRESSION: Successful PTCA stent of the LAD and circumflex going from 80% to 90% initial stenosis to 0% residual. TRANSINT:[id number] Voice Confirmation ID: [id number] DOCUMENT ID: [id number] ANNIE ABEL MD at 1146 CC: [id number] DICTATION DATE: 08/21/18 1012 PLASTIC WELDING MACHINE OPERATOR: 08/21/18 1133 DIS IN 08/21/18 [place] [address]
--- NOTE | 2018-08-24 11:46 | DS ---
PATIENT:JOSE RAMON GÓMEZ :51 MEDICAL RECORD: [id number] DISCHARGE SUMMARY ADMISSION DATE: 08/20/18 DISCHARGE DATE: 08/21/18 DATE OF DISCHARGE: 08/21/2018 DISCHARGE DIAGNOSES: 1. Unstable angina. 2. PTCA and stent of LAD and circumflex this admission. 3. Hypertension. HOSPITAL COURSE: This is a gentleman, who presents with anginal symptomatology, found to have critical disease of the LAD and circumflex. Underwent successful PTCA and stent of both vessels. Discharged home with the addition of aspirin and Plavix to his medical regimen. He will follow up with [facility] in 1 month. TRANSINT:[id number] Voice Confirmation ID: [id number] DOCUMENT ID: [id number] ANNIE ABEL MD at 1146 CC: [id number] DICTATION DATE: 08/21/18 1003 CHEMISTRY DEPARTMENT CHAIR: 08/22/18 0028 DIS IN 08/21/18 [place] [id number] [place] [address]
== END 2018-08-21 14:15 | disposition home or self-care (01) ==
LOC: D.ER 14:09 → D.EDHOLD 17:50 → D.M2 17:50 → OBSVTIME 17:51 → D.M2 08-21 14:15
PROVIDERS: Family Medicine; ADMIT Internal Medicine Interventional Cardiology
DX: I25.110 Atherosclerotic heart disease of native coronary artery with unstable angina pectoris (principal); I10 Essential (primary) hypertension; E78.5 Hyperlipidemia, unspecified; K21.9 Gastro-esophageal reflux disease without esophagitis
CPT/HCPCS: 93458; 92921; C9600 ×2

== ENCOUNTER → 2019-07-09 07:57 | Outpatient (CLI) | payer MEDICARE, BC ==
[~2019-07-09 07:57] MED LIST changes: +PLAVIX75 MG PO; +TYLENOL PM1 TAB PO
--- NOTE | 2019-07-12 11:13 | ST ---
PATIENT:JOSE RAMON GÓMEZ MEDICAL RECORD: [id number] SEX: M LOCATION:[facility] ORDER #: ADMISSION DATE: 07/09/19 AGE OF PATIENT: 64 REFERRING PHYSICIAN: INTERPRETING PHYSICIAN: ANNIE ABEL MD DATE OF SERVICE: 07/09/2019 NUCLEAR STRESS TEST INDICATION: Angina and coronary artery disease and hypertension. He was exercised on standard Lexiscan protocol with 33 mCi of sestamibi injected at peak stress, 11 mCi used previously for rest images. FINDINGS: Gated SPECT reveals preserved ejection fraction at 58% with decreased thickening and brightening throughout the inferior segments. SPECT imaging Cardiolite was used as myocardial perfusion agent. There is a mixed perfusion defect inferiorly and apically, partially fixed, partially reversible. There is as well reversible ischemia laterally. This includes the basal, mid, apical, lateral segments. OVERALL IMPRESSION: This is an intermediate to high risk abnormal nuclear stress test, fixed perfusion defects with reversibility throughout the inferior apically and lateral segments suggestive of hemodynamically significant coronary artery disease and possibly multivessel disease. TRANSINT:[id number] Voice Confirmation ID: [id number] DOCUMENT ID: [id number] ANNIE ABEL MD at 1113 CC: LAURA ALEXANDER [id number] DICTATION DATE: 07/09/19 1253 ENGINEERING SCIENTIST: 07/09/191916 DEP CLI 07/09/19 [facility] [address] [place] [address]
== END | disposition home or self-care (01) ==
LOC: D.HCCARDIO 07:57
PROVIDERS: ATTEND Internal Medicine Interventional Cardiology
DX: I25.10 Atherosclerotic heart disease of native coronary artery without angina pectoris (principal)

== ENCOUNTER 2019-07-16 08:33 | Outpatient (CLI) | payer MEDICARE, BC ==
[~2019-07-16] VITALS: Ht 180.3 cm; Wt 90.9 kg
--- NOTE | ~2019-07-16 | OP ---
PATIENT NAME: JOSE RAMON GÓMEZ MEDICAL RECORD: [id number] :51 LOCATION:D.CAT ADMISSION DATE: SURGEON: ANNIE ABEL MD DATE OF OPERATION: 07/16/2019 PROCEDURES: 1. PTCA stent LAD. 2. IFR. 3. Left heart catheterization. 4. Selective coronary angiography. 5. Left ventriculogram. INDICATION: Angina and coronary artery disease. PROCEDURE IN DETAIL: After informed consent was obtained and after a detailed description of risks, benefits as well as alternative therapies, the patient elected to proceed with angiogram and angioplasty. The right radial area was prepped and draped in normal sterile fashion. Right radial artery was cannulated via modified Seldinger technique with placement of 6-Monegasque sheath. All catheters exchanged through this sheath. FINDINGS: Left ventriculogram performed in standard 30-degree TOLEDO view, reveals good cardiac wall motion, ejection fraction estimated at 60%. SELECTIVE CORONARY ANGIOGRAPHY: 1. Left main is with no significant angiographic disease. 2. Left anterior descending has previously placed stent just proximal to the stent, there is 75% stenosis and IFR is abnormal. 3. Left circumflex has moderate irregularities, but no flow-limiting stenosis. 4. Right coronary has moderate irregularities, but no flow-limiting stenosis. PTCA STENT OF THE LAD: The stent used was a 2.5 x 12 mm [place], taken to 23 atmospheres. Result was 0% residual stenosis. OVERALL IMPRESSION: Successful percutaneous transluminal coronary angioplasty stent of the left anterior descending going from 75% initial stenosis to 0% residual. TRANSINT:[id number] Voice Confirmation ID: [id number] DOCUMENT ID: [id number] ANNIE ABEL MD CC: [id number] DICTATION DATE: 07/16/19 140 JACK PRIZER: 07/16/19 2205 DEP CLI 07/16/19 [place] [address]
--- NOTE | ~2019-07-16 | HEMODYNAMI ---
PATIENT:JOSE RAMON GÓMEZ MEDICAL RECORD: [id number] : 51 LOCATION:[facility] ADMISSION DATE: 07/16/19 Generatedon:07/16/201914:02 Patient name: JOSE RAMON GÓMEZ Patient #: [id number] SSN: [id number] : 1955 Date of study: 07/16/2019 Page: Of Hemodynamic Procedure Report Patient Data Patient Demographics Procedure consent was obtained First Name: JOSE RAMON Gender: Male Last Name: RICO : 1955 Patient #: [id number] Age: 64 year(s) Race: SSN: [id number] Additional ID: [id number] Contact details [address]: [address] [place] [address] State: [place] City: [place] Zip code: [address] Past Medical History Allergies: No known allergies Admission Admission Data Admission Date: 07/16/2019 Admission Time: 8:33 Arrival Date: 07/16/2019 Arrival Time: 11:00 Admit Source: Other Insurance Payor: Medicare, Private health insurance [facility] #: [id number] Height (in.): 70.87 BSA: 2.11 (m2) Height (cm.): 180 BMI: 28.09 (kg/m2) Weight (lbs.): 200.62 Weight (kg.): 91 Lab Results Lab Result Date: 07/16/2019 Lab Result Time: 0:00 Biochemistry Name Units Result Min Max BUN mg/dl 14 --(--*-)-- 7 18 Creatinine mg/dl 1 --(--*-)-- 0.6 1.3 eGFR ml/min 79.04138 *-(----)-- 90 120 NONAFRICAN CBC Name Units Result Min Max Hemoglobin g/dl 15 --(-*--)-- 13.5 17.5 Procedure Procedure Types Cath Procedure Diagnostic Procedure C [facility] w/Coronaries FFR/IVUS FFR Initial Sedation Charges Moderate Sedation up to 15 minutes PCI Procedure Coronary Stent Coronary Stent Initial Hemochron ACT Test Procedure Description Procedure Date Procedure Date: 07/16/2019 Procedure Start Time: 13:42 Procedure End Time: 13:58 Procedure Staff Name Function Willie Aponte MD Performing Physician Daniela Lara RT Monitor Mariah Servin RT Scrub Heidy Gill RN Nurse Procedure Data Cath Procedure Fluoroscopy Diagnostic fluoroscopy Total fluoroscopy Time: 5.8 time: 5.8 min min Diagnostic fluoroscopy Total fluoroscopy dose: 754 dose: 754 mGy mGy Contrast Material Contrast Material Type Amount (ml) Isovue 300 94 Entry Location Entry Primary Successful Side Size Upsize Upsize Entry Closure Wheeler ccessful Closure Location (Fr) 1 (Fr) 2 (Fr) Remarks Device Remarks Radial Right 6 Fr Mechanical artery Short Compression Estimated blood loss: 5 ml Diagnostic catheters Device Type Used For End Catheter Placement DIAGNOSTIC Troy 110cm 5 Multi-vessel Fr catheter ([id number]) Angiography DIAGNOSTIC AR2 MOD 5 Fr Right Coronary catheter ([id number]) Angiography Procedure Complications No complications Procedure Medications Medication Administration Route Dosage 0.9% NaCl I.V. 100 ml/hr Oxygen etCO2 Nasal cannula 2 l/min Lidocaine 2% added to field 20 Heparin Flush Bag added to field 2 bags (1000units/500ml NS) Radial Cocktail added to field 1 syringe (Verapamil 2mg/Nitro 400mcg/Heparin 1500units) Versed I.V. 2 mg Fentanyl I.V. 50 mcg Versed I.V. 2 mg Fentanyl I.V. 50 mcg Heparin Bolus I.V. 4000 units Integrilin (Bolus I.V. 7.9 ml 2mg/ml) Integrilin (Bolus wasted 2.1 ml 2mg/ml) Plavix P.O. 600 mg Hemodynamics Rest BSA: 2.11 (m2) HGB: 15 (g/dl) O2 Consumption: Estimated: 257.82 (ml/min) O2 Cons umption indexed: Estimated:122.19 (ml/min/m) Heart Rate: 85 (bpm) Pressure Samples Time Site Value (mmHg) Purpose Heart Use Rate(bpm) 13:44 LV 97/5,11 Snapshot 10 Snapshots Pre Cath Intra NCS Post Cath Vital Signs Time Heart Resp SPO2 etCO2 NIBP (mmHg) Rhythm Pain Sedation Rate (ipm) (%) (mmHg) Status Level (bpm) 13:29:51 87 15 100 37 152/103(114) NSR 0 (11) 10(A) , No pain 13:34:05 80 13 98 41 138/87(124) NSR 0 (11) 10(A) , No pain 13:38:15 75 13 98 28.4 131/87(107) NSR 0 (11) 10(A) , No pain 13:42:23 81 14 98 30.6 136/91(112) NSR 0 (11) 10(A) , No pain 13:46:35 84 16 97 21.4 119/83(93) NSR 0 (11) 10(A) , No pain 13:50:37 75 16 98 27.6 114/92(108) NSR 0 (11) 10(A) , No pain 13:55:36 64 10 97 36.5 Measuring NSR 0 (11) 10(A) , No pain 13:55:38 76 10 97 36.5 137/76(101) NSR 0 (11) 10(A) , No pain Medications Time Medication Route Dose Verified Delivered Reason Not es Effectiveness by by 13:29:05 0.9% NaCl I.V. 100 Willie Heidy used for ml/hr Fadi Gill calender runner 13:29:12 Oxygen etCO2 2 l/min Willie Heidy used for Nasal Fadi Gill procedure cannula RN 13:29:16 Lidocaine 2% added 20ml Willie Willie for local to vial Fadi Aponte MD anesthetic field 13:29:22 Heparin Flush added 2 bags Willie Willie used for Bag to Fadi Aponte MD procedure (1000units/500ml field NS) 13:29:36 Radial Cocktail added 1 Willie Willie used for (Verapamil to syringe Fadi Aponte MD procedure 2mg/Nitro field 400mcg/Heparin 1500units) 13:37:32 Versed I.V. 2 mg Willie Heidy for sedation Fadi Gill RN 13:37:38 Fentanyl I.V. 50 mcg Willie Heidy for sedation Fadi Gill RN 13:42:25 Versed I.V. 2 mg Willie Heidy for sedation Fadi Gill RN 13:42:29 Fentanyl I.V. 50 mcg Willie Heidy for sedation Tauth MD Jairo RN 13:53:31 Heparin Bolus I.V. 4000 Willie Moody for jann ified units Fadi Gill anticoagulation with Dr. STARLA Aponte 13:53:48 Integrilin I.V. 7.9 ml Willie Astorgaa for (Bolus 2mg/ml) Fadi Gill antiplatelet RN therapy 13:54:04 Integrilin wasted 2.1 ml Willie Moody for (Bolus 2mg/ml) Fadi Gill antiplatelet RN therapy 13:54:10 Plavix P.O. 600 mg Willie Moody for Fadi Gill antiplatelet RN therapy Procedure Log Time Note 13:19:21 Diagnostic Cath Status : Elective 13:19:35 Mariah Serivn RT(R) sent for patient. Start room use. 13:19:36 Time tracking: Regular hours (M-F 7:00 - 5:00) 13:19:40 Plan of Care:Hemodynamics will remain stable., Cardiac rhythm will remain stable., Comfort level will be maintained., Respiratory function will remain adequate., Patient/ family verbilizes understanding of procedure., Procedure tolerated without complication., Recovers from procedure without complications.. 13::54 Informed consent obtained and on chart 13::52 Arrival Date: 07/16/2019 11:00:00 AM 13:22:17 Insurance Payor : Private health insurance, Medicare 13:22:18 Admit Source: Other 13:22:23 Patient Height : 70.87 inches 13:22:26 Patient Weight : 200.62 lbs 13:23:50 Lab Result : BUN 14 mg/dl 13:23:50 Lab Result : eGFR NONAFRICAN 79.37051 ml/min 13:23:50 Lab Result : Hemoglobin 15 g/dl 13:23:50 Lab Result : Creatinine 1 mg/dl 13:23:56 Patient received from Pre/Post Procedure Room to [facility] 2 Alert and oriented. Tansferred to table in Supine position. 13:23:57 Warm blankets applied, and kayla hugger turned on for patient comfort. 13:23:57 Correct patient and procedure confirmed by team. 13:28:54 Vital chart was started 13:29:05 0.9% NaCl 100 ml/hr I.V. was administered by Heidy Gill RN; used for procedure; Verbal order read back and verified. 13:29:12 Oxygen 2 l/min etCO2 Nasal cannula was administered by Heidy Gill RN; used for procedure; Verbal order read back and verified. 13:29:16 Lidocaine 2% 20ml vial added to field was administered by Willie Aponte MD; for local anesthetic; Verbal order read back and verified. 13:29:22 Heparin Flush Bag (1000units/500ml NS) 2 bags added to field was administered by Willie Aponte MD; used for procedure; Verbal order read back and verified. 13:29:36 Radial Cocktail (Verapamil 2mg/Nitro 400mcg/Heparin 1500units) 1 syringe added to field was administered by Willie Aponte MD; used for procedure; Verbal order read back and verified. 13:31:53 Baseline sample Acquired. 13:31:59 Rhythm: sinus tachycardia 13:32:00 Full Disclosure recording started 13:32:04 H&P Date Dictated: 07/16/2019 Within 30 days and on chart., H&P Addendum completed by physician on day of procedure. (MUST COMPLETE FOR ALL OUTPATIENTS). 13:32:06 Pre-procedure instructions explained to patient. 13:32:06 Pre-op teaching completed and patient verbalized understanding. 13:32:08 Family in patients room. 13:32:09 Patient NPO since Midnight. 13:32:11 Is the patient allergic to Iodine/contrast media? No. 13:32:12 Was the patient premedicated? Yes 13:32:14 Is patient on blood thinner?No 13:32:15 Patient diabetic? No. 13:32:17 Previous problem with sedation/anesthesia? No ? 13:32:26 Snore? Yes 13:32:27 Sleep apnea? No 13:32:28 Deviated septum? No 13:32:28 Opens mouth fully? Yes 13:32:29 Sticks out tongue? Yes 13:32:30 Airway obstruction? No ? 13:32:34 Dentures? No ? 13:32:37 Pre procedure: right dorsailis pedis pulse 1+ Palpable, but thready & weak; easily obliterated 13:32:40 Pre procedure: left dorsailis pedis pulse 1+ Palpable, but thready & weak; easily obliterated 13:32:42 Patient pain scale 0/10 ?. 13:32:49 IV patent on arrival in left forearm with 0.9% NaCl at [facility]. 13:32:52 Lab results completed and on chart. 13:32:56 Stress Test: yes; abnormal ? 13:34:34 Risk of Mortality: <0.1 13:34:36 Risk of blood transfusion: 0.1 13:34:39 Risk of SATURNINO: 0.1 13:34:43 Right Radial & Right Groin area was prepped with chlora-prep and draped in sterile fashion 13:34:44 Alarms reviewed by R. N. 13:34:44 Sharps counted by scrub and verified by R.N. 13:34:45 Physician arrived 13:34:45 --------ALL STOP TIME OUT------ 13:34:46 Final Timeout: patient, procedure, and site verified with staff and physician. All members of the team are in agreement. 13:34:49 Right Radial & Right Groin site verified by team. 13:34:57 Fire Safety Assessment: A--An alcohol-based skin anteseptic being used preoperatively., C--Open oxygen or nitrous oxide is being used., D--An ESU, laser, or fiber-optic light is being used. 13:35:01 Physical assessment completed. ASA score P 2 - A patient with mild systemic disease as per Willie Aponte MD. 13:35:08 2) 60-89 Mildly reduced kidney function, and other findings (as for stage 1) point to kidney disease. 13:36:05 Maximum allowable contrast dose (3.7 X eGFR X 0.75)210 ml. 13:36:36 Sedation plan: IV Moderate Sedation Medication:Versed, Fentanyl 13:36:39 Use device set Radial Dx or PCI 13:36:40 ACIST Syringe (03977) opened to sterile field. 13:36:41 Medline Cath Pack ([id number]) opened to sterile field. 13:36:41 Bag Decanter () opened to sterile field. 13:36:41 ACIST Hand Control (37625) opened to sterile field. 13:36:42 ACIST Manifold (68902) opened to sterile field. 13:36:42 Tegaderm 4 x 4 (1626W) opened to sterile field. 13:36:42 MBrace Wrist Support (093615529) opened to sterile field. 13:36:45 SHEATH 6FR RAIN (9774390) opened to sterile field. 13:36:46 EMERALD Guide Wire (448-959) opened to sterile field. 13:37:32 Versed 2 mg I.V. was administered by Heidy Gill RN; for sedation; Verbal order read back and verified. 13:37:38 Fentanyl 50 mcg I.V. was administered by Heidy Gill RN; for sedation; Verbal order read back and verified. 13:38:01 Zero performed for pressure channel P1 13:41:11 Procedure started. 13:42:14 Local anesthetic to right radial artery with Lidocaine 2% by Willie Aponte MD.INITIAL ACCESS ONLY 13:42:23 A 6 Fr Short sheath was inserted into the Right Radial artery 13:42:25 Versed 2 mg I.V. was administered by Heidy Gill RN; for sedation; Verbal order read back and verified. 13:42:29 Fentanyl 50 mcg I.V. was administered by Heidy Gill RN; for sedation; Verbal order read back and verified. 13:42:36 A DIAGNOSTIC Troy 110cm 5 Fr catheter ([id number]) was advanced over the wire and used for Multi-vessel Angiography. 13:44:17 LV hemodynamics recorded. 13:44:18 LV gram done using TOLEDO 13:44:21 Injector settings: Ml/sec: 5, Volume: 15, 13:44:25 EF : 60 % 13:44:40 LCA angiography performed. 13:44:43 Injector settings: Ml/sec: 3, Volume: 6, 13:45:04 INFLATOR Merit BasixCompak (IH2868) opened to sterile field. 13:46:16 A DIAGNOSTIC AR2 MOD 5 Fr catheter ([id number]) was advanced over the wire and used for Right Coronary Angiography. 13:46:26 RCA angiography performed. 13:46:30 Injector settings: Ml/sec: 3, Volume: 6, 13:46:40 Catheter removed. 13:46:42 Proceeding to intervention. 13:47:10 Red House Verrata Plus pressure wire (46544R) opened to sterile field. 13:47:46 GUIDE 6FR XBLAD 3.5 catheter ([id number]) opened to sterile field. 13:48:31 6 Fr XBLAD 3.5 guide catheter was inserted over the wire 13:48:37 FFR/IFR wire advanced. 13:48:38 Baseline FFR 1. 13:50:02 ACCDominant side:Right 13:50:09 Wire advanced across lesion. 13:52:43 mLAD lesion measured at 0.86 with IFR 13:53:31 Heparin Bolus 4000 units I.V. was administered by Heidy Gill RN; for anticoagulation; verified with Dr. Aponte Verbal order read back and verified. 13:53:48 Integrilin (Bolus 2mg/ml) 7.9 ml I.V. was administered by Heidy Gill RN; for antiplatelet therapy; Verbal order read back and verified. 13:54:04 Integrilin (Bolus 2mg/ml) 2.1 ml wasted was administered by Heidy Gill RN; for antiplatelet therapy; Verbal order read back and verified. 13:54:10 Plavix 600 mg P.O. was administered by Heidy Gill RN; for antiplatelet therapy; Verbal order read back and verified. 13:54:18 ACC Pre-intervention BLANKA Flow is 3. 13:54:25 Place stent Inflation Number: 1 A MALCOLM RX 2.5 x 12 stent ([id number]) was prepped and advanced across the Mid LAD 75. The stent was deployed at 19 EDMUND for 0:10 (min:sec) 0. 13:55:26 Inflation number: 2 The stent balloon was then re-inflated across the Mid LAD 0 to 8 EDMUND for 0:10 (min:sec) . 13:56:05 Stent catheter was removed intact over wire. 13:56:05 Wire removed. 13:56:06 Guide catheter removed. 13:56:15 Sheath removed intact; hemostasis achieved with Mechanical Compression to the Right Radial artery. 13:56:17 Procedure ended.(Physican Out) 13:56:32 Fluoroscopy time 05.80 minutes. 13:56:36 Fluoroscopy dose: 754 mGy 13:56:36 Flurop Dose total: 754 13:56:41 Dose Area Product 71505 mGy/cm. 13:56:45 Contrast amount:Isovue 300 94ml. 13:56:46 Maximum allowable dose exceeded? No. 13:56:47 Sharps counted by scrub and verified by R.N. 13:56:48 Insertion/operative site no bleeding no hematoma. 13:56:54 Post right radial artery:stable 13:56:55 Post Procedure Pulses reassessed and unchanged 13:56:58 Post procedure rhythm: unchanged. 13:57:00 Estimated blood loss: 5 ml 13:57:02 Post procedure instruction explained to patient.Patient verbalizes understanding. 13:57:02 Patient needs reinforcement of post procedure teaching. 13:57:17 Procedure type changed to Cath procedure, Diagnostic procedure, LHC, [facility] w/Coronaries, FFR/IVUS, FFR Initial, Sedation Charges, Moderate Sedation up to 15 minutes, PCI procedure, Coronary Stent, Coronary Stent Initial, Hemochron ACT Test 13:57:53 Procedure and supply charges have been captured, reviewed, submitted and are correct. 13:57:59 Procedure Complication : No complications 13:58:01 Vital chart was stopped 13:58:03 [facility] Findings: MVD- PCI performed (see procedure note) 13:58:05 Operative report dictated upon procedure completion. 13:58:05 See physician's report for complete and final results. 13:58:08 Report given to Pre/Post Procedure Room. 13:58:10 Patient transfered to Pre/Post Procedure Room with Stretcher. 13:58:12 Procedure ended. 13:58:12 Full Disclosure recording stopped 13:58:25 ACC-PCI Only Patient was given prescriptions, or instructed by Willie Aponte MD to start/continue the following medications upon discharge: Plavix 13:58:36 [place] band inflated with 10cc of air. 13:58:39 End room use (Document Last) 13:59:11 ACT drawn and resulted at 251 seconds. (normal therapeutic range 180-240 seconds). 14:00:38 ZEPHYR REGULAR TR BAND (996685) opened to sterile field. 14:01:00 ZEPHYR LARGE TR BAND (200467) opened to sterile field. 14:02:13 TR BAND Standard ([id number]) opened to sterile field. Intervention Summary Intervention Notes Time ActionType Lesion and Equipment Used Action# Pressure Duration Attributes 13:54:25 Place stent Mid LAD MALCOLM RX 2.5 x 1 19 00:10 12 stent ([id number]) 13:55:26 Reinflate Mid LAD MALCOLM RX 2.5 x 2 8 00:10 stent 12 stent balloon ([id number]) Device Usage Item Name Manufacture Quantity Catalog Hospital Part Current Minimal Lot# / Number Charge Number Stock Stock Serial# Code ACIST Syringe Acist 1 58482 892979 406708 496629 20 (37263) Medical Systems Inc Medline Cath Medline 1 [id number] 313585 36774 250026 5 Pack ([id number]) Bag Decanter Microtek 1 2001S 165518 43820 468049 5 (2001S) Medical Inc. ACIST Hand Acist 1 88080 403562 032899 674611 5 Control Medical (11578) Systems Inc ACIST Manifold Acist 1 06355 331188 118647 287533 5 (30006) Medical Systems Inc Tegaderm 4 x 4 3M 1 1626W 660997 565582 841655 5 (1626W) MBrace Wrist Advanced 1 140-0250-00 729756 39696 365795 5 Support Vascular (792672014) Dynamics SHEATH 6FR Cardinal 1 2687534 337861 8206582 545172 5 RAIN (1867262) Health EMERALD Guide Cardinal 1 502-455 014089 479822 646936 5 Wire (502-455) Health DIAGNOSTIC Terumo 1 40-6713 373836 696875 146855 5 [place] 110cm 5 Fr catheter (644058) INFLATOR Merit Merit 1 ND7031 106123 934479 695749 15 Portal Solutions (JZ0465) DIAGNOSTIC AR2 Cardinal 1 [id number] 769590 220251 706086 20 MOD 5 Fr Health catheter (342976A) Red House Red House 1 13725K 718795 675860647 664662 5 Verrata Plus pressure wire (12585J) GUIDE 6FR Cardinal 1 [id number] 028395 852543 472651 10 XBLAD 3.5 Health catheter (01041486) MALCOLM RX 2.5 x Medtronic 1 [id number] 574624 2861896 141190 5 [id number] 12 stent ([id number]) ZEPHYR REGULAR Cardinal 1 696767 228055 3925276 390382 5 TR BAND Health (440480) ZEPHYR LARGE Cardinal 1 430760 183925 6725575 903900 5 TR BAND Health (722483) TR BAND Terumo 1 [id number] 567725 293333 803369 40 Standard ([id number]) Signature Audit [place] Stage Time Signature Unsigned Intra-Procedure 07/16/2019 Daniela Lara 2:01:00 PM RT(R) Intra-Procedure 07/16/2019 Heidy Gill 2:02:13 PM RN Intra-Procedure 07/16/2019 Willie Aponte 2:02:46 PM MD Signatures Performing Physician : Signature : Willie Aponte MD Date : Time : Monitor : Daniela Lara RT Signature : Date : Time : Nurse : Heidy Gill RN Signature : Date : Time : [place] [address] [place] [address]
[2019-07-16] MEDS ORDERED: PRAVACHOL40 MG PO (10:03)
[2019-07-16 10:04] VITALS: BP 146/80; Ht 180.3 cm; Wt 90.9 kg
[2019-07-16 10:18] LABS: BASOPHILS 0.2 % (0-2); EOSINOPHILS 2.1 % (0-7); HEMATOCRIT 43.7 % (42.0-54.0); IMMATURE GRANULOCYTES 0.2 % (0-5); LYMPHOCYTES 34.4 % (15-50); MCH 29.9 pg (26.0-34.0); MCHC 34.3 g/dL (31.0-37.0); MCV 87.2 fL (80.0-100.0); MEAN PLATELET VOLUME 8.4 fL (7.4-10.4); MONOCYTES 8.9 % (2-11); NEUTROPHILS 54.2 % (40-80); RBC 5.01 10x6/uL (4.20-6.10); RDW 12.8 % (11.5-14.5); WBC 6.1 10x3/uL (4.8-10.8)
[2019-07-16 10:20] LABS: PLATELET COUNT 152 10x3/uL (130-400)
[2019-07-16 10:41] LABS: ALT (SGPT) 75 U/L (10-68); CALC OSMOLALITY 287 mosm/kg (275-300); CALCIUM 9.1 mg/dL (8.5-10.1); CARBON DIOXIDE 29.8 mmol/L (21.0-32.0); CHLORIDE - SERUM 105 mmol/L (98-107); CHOL - HDL RATIO 4.4 ratio (2.3-4.9); CHOLESTEROL, TOTAL 201 mg/dL (0-200); GLUCOSE 94 mg/dL (74-106); HDL CHOLESTEROL 46 mg/dL (32-96); LDL CHOLESTEROL 101 mg/dL (0-100); LDL-HDL RATIO 2.2 ratio (1.5-3.5); POTASSIUM - SERUM 4.4 mmol/L (3.5-5.1); SODIUM 144 mmol/L (136-145); TRIGLYCERIDE 273 mg/dL (30-200); UREA NITROGEN 14 mg/dL (7-18); eGFR NON AFRICAN AMERICAN 79 mL/min (90-120)
--- NOTE | 2019-07-16 14:11 | NUR ---
PT ARRIVED BY STRETCHER. PLACED ON MONITORS. ASSESSMENT COMPLETED. VSS AT THIS TIME. FAMILY AT BEDSIDE.
--- NOTE | 2019-07-16 14:26 | NUR ---
PT SITTING UP IN BED. SET UP WITH SANDWICH TRAY AND DRINK. DENIES NAUSEA/PAIN. CALL LIGHT WITHIN REACH. VSS. RIGHT RADIAL Z BAND IN PLACE. NO BLEEDING/HEMATOMA NOTED.
[2019-07-16] MEDS ORDERED: PLAVIX75 MG PO (14:39)
--- NOTE | 2019-07-16 15:00 | NUR ---
PT SITTING UP IN BED. USED URINAL. VOIDED 300cc OF CLEAR YELLOW URINE WITHOUT DIFFICULTY. RESTING COMFORTABLY. VSS AT THIS TIME. FAMILY AT BEDSIDE. RIGHT WRIST Z BAND IN PLACE. NO BLEEDING/HEMATOMA NOTED.
--- NOTE | 2019-07-16 15:30 | NUR ---
PT RESTING COMFORTABLY. VSS. RIGHT RADIAL Z BAND IN PLACE. NO BLEEDING/HEMATOMA NOTED. CALL LIGHT WITHIN REACH.
--- NOTE | 2019-07-16 16:00 | NUR ---
RIGHT RADIAL Z BAND IN PLACE. NO BLEEDING/HEMATOMA NOTED. VSS AT THIS TIME. CALL LIGHT WITHIN REACH.
--- NOTE | 2019-07-16 16:30 | NUR ---
PT RESTING COMFORTABLY. VSS. RIGHT RADIAL Z BAND IN PLACE. NO BLEEDING/HEMATOMA NOTED. CALL LIGHT WITHIN REACH. VSS AT THIS TIME. WILL CONTINUE TO MONITOR.
--- NOTE | 2019-07-16 16:45 | NUR ---
DR. ABEL ROUNDED AND SPOKE WITH PT AND PT'S FAMILY. THEY VOICED UNDERSTANDING. 2cc OF AIR REMOVED FROM Z BAND. NO BLEEDING/HEMATOMA NOTED. CALL LIGHT WITHIN REACH.
--- NOTE | 2019-07-16 17:00 | NUR ---
3cc OF AIR REMOVED FROM Z BAND. TOLERATED WELL. NO BLEEDING/HEMATOMA NOTED. VSS.
--- NOTE | 2019-07-16 17:15 | NUR ---
4cc OF AIR REMOVED FROM Z BAND. NO BLEEDING/HEMATOMA NOTED. VSS. CALL LIGHT WITHIN REACH. FAMILY AT BEDSIDE.
--- NOTE | 2019-07-16 17:30 | NUR ---
Z BAND REMOVED AND DRESSING APPLIED. NO BLEEDING/HEMATOMA NOTED. CALL LIGHT WITHIN REACH. VSS. RIGHT WRIST BRACE IN PLACE. PIV D/C'D WITH CATH TIP INTACT. TOLERATED WELL. PT INSTRUCTED TO GET UP AND DRESSED. FAMILY AT BEDSIDE TO ASSIST.
--- NOTE | 2019-07-16 17:40 | NUR ---
DISCUSSED DISCHARGE INSTRUCTIONS WITH PT AND PT'S FAMILY. THEY VOICED UNDERSTANDING.
--- NOTE | 2019-07-16 17:50 | NUR ---
RIGHT RADIAL DRESSING C/D/I. NO S/S OF HEMATOMA NOTED. CALL LIGHT WITHIN REACH. VSS. PT TAKEN OUT TO VEHICLE BY WHEELCHAIR. NO S/S OF DISTRESS NOTED. ALL BELONGINGS AND PAPERWORK IN HAND.
== END 2019-07-16 17:50 | disposition home or self-care (01) ==
LOC: D.CATH 08:33
PROVIDERS: ATTEND Internal Medicine Interventional Cardiology
DX: I25.119 Atherosclerotic heart disease of native coronary artery with unspecified angina pectoris (principal); I10 Essential (primary) hypertension
CPT/HCPCS: 93458; 93571; C9600

== ENCOUNTER 2019-08-06 18:55 | Emergency (ER) | payer MEDICARE, BC ==
[~2019-08-06] VITALS: Ht 180.3 cm; Wt 90.9 kg
[~2019-08-06 18:55] MED LIST changes: +PRAVACHOL40 MG PO
[2019-08-06 19:02] VITALS: Ht 180.3 cm; Wt 90.9 kg
[2019-08-06 19:24] LABS: BASOPHILS 0.2 % (0-2); EOSINOPHILS 2.3 % (0-7); HEMATOCRIT 38.4 % (42.0-54.0); HEMOGLOBIN 13.3 g/dL (13.5-17.5); IMMATURE GRANULOCYTES 0.2 % (0-5); LYMPHOCYTES 40.3 % (15-50); MCH 29.7 pg (26.0-34.0); MCHC 34.6 g/dL (31.0-37.0); MCV 85.7 fL (80.0-100.0); MEAN PLATELET VOLUME 8.4 fL (7.4-10.4); MONOCYTES 8.4 % (2-11); NEUTROPHILS 48.6 % (40-80); PLATELET COUNT 160 10x3/uL (130-400); RBC 4.48 10x6/uL (4.20-6.10); RDW 12.8 % (11.5-14.5); WBC 5.1 10x3/uL (4.8-10.8)
[2019-08-06 19:47] LABS: APTT 29.5 SECONDS (22.8-39.4); INR 0.92 (0.85-1.17); PROTIME 12.4 SECONDS (11.6-15.0)
[2019-08-06 19:55] LABS: CALC OSMOLALITY 289 mosm/kg (275-300); CALCIUM 8.7 mg/dL (8.5-10.1); CARBON DIOXIDE 29.1 mmol/L (21.0-32.0); CHLORIDE - SERUM 105 mmol/L (98-107); CREATININE - SERUM 1.1 mg/dL (0.6-1.3); GLUCOSE 130 mg/dL (74-106); POTASSIUM - SERUM 3.7 mmol/L (3.5-5.1); SODIUM 144 mmol/L (136-145); UREA NITROGEN 16 mg/dL (7-18); eGFR NON AFRICAN AMERICAN 71 mL/min (90-120)
[2019-08-06 20:02] LABS: THYROID STIMULATING HORMONE 3.47 uIU/mL (0.36-3.74)
[2019-08-06 20:14] LABS: ALBUMIN 3.9 g/dL (3.4-5.0); ALKALINE PHOSPHATASE 85 U/L (30-120); ALT (SGPT) 49 U/L (10-68); BILIRUBIN - TOTAL 0.29 mg/dL (0.2-1.3); CKMB 1.5 U/L (0.0-3.6); CREATINE KINASE 139 UL (21-232); PROTEIN - SERUM 7.4 g/dL (6.4-8.2); TROPONIN-I < 0.017 ng/mL (0.000-0.060)
[2019-08-06 20:41] VITALS: BP 151/89
== END 2019-08-06 20:53 | disposition home or self-care (01) ==
LOC: D.ER 18:55
PROVIDERS: Family Medicine
DX: I25.119 Atherosclerotic heart disease of native coronary artery with unspecified angina pectoris (principal); I10 Essential (primary) hypertension; G62.9 Polyneuropathy, unspecified; E78.5 Hyperlipidemia, unspecified; K21.9 Gastro-esophageal reflux disease without esophagitis; Z98.61 Coronary angioplasty status

== ENCOUNTER → 2019-12-09 20:54 | Outpatient (CLI) | payer MEDICARE, BC ==
[2019-08-06 19:02] VITALS: BMI 27.9
== END | disposition home or self-care (01) ==
LOC: D.LABREF 20:54
PROVIDERS: ATTEND Internal Medicine Interventional Cardiology
DX: E78.5 Hyperlipidemia, unspecified (principal)